=== PATIENT | female | born 2005 | race Caucasian/White ===

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

== ENCOUNTER 2024-03-20 19:28 | Emergency (ER) | payer BC ==
[2024-03-20 19:41] VITALS: BP 119/75; PULSE 100; RESP 18; TEMP 98.3; BMI 34.2
[2024-03-20] MEDS ORDERED: predniSONE 20 MG TABLET (UD) ONE (20:50)
[2024-03-20] MEDS ORDERED: AZITHROMYCIN 500 MG TABLET ONE (20:50)
[2024-03-20] MEDS: predniSONE 20 MG TABLET (UD) PO ONE (20:53)
[2024-03-20] MEDS: AZITHROMYCIN 500 MG TABLET PO ONE (20:53)
== END 2024-03-20 21:29 | disposition home or self-care (01) ==
LOC: FER 19:28
DX: J40 Bronchitis, not specified as acute or chronic (principal); R05.3 Chronic cough
CPT/HCPCS: 71046-TC-FY; 99283-25

== ENCOUNTER 2024-03-28 20:38 | Emergency (ER) | payer BC ==
[2024-03-28 20:43] VITALS: BP 122/86; PULSE 91; RESP 18; TEMP 98.4; BMI 34.6
[2024-03-28] MEDS ORDERED: AZITHROMYCIN IVPB 500 MG in DEXTROSE 5%-WATER - 250 ML IVPB ONE (20:57)
[2024-03-28] MEDS ORDERED: AZITHROMYCIN 500 MG TABLET ONE (21:08)
[2024-03-28] MEDS ORDERED: DEXAMETHASONE 4 MG TABLET (FP) ONE (21:09)
[2024-03-28] MEDS: AZITHROMYCIN 500 MG TABLET PO ONE (21:22)
[2024-03-28] MEDS: BENZOCAINE/MENTH/CETYLPYRD CL 1 EACH LOZENGE MM PRN (21:22)
[2024-03-28] MEDS: DEXAMETHASONE 4 MG TABLET (FP) PO ONE (21:22)
[2024-03-28] MEDS: ALBUTEROL SO4 2.5/IPRATROPIUM 0.5 INH SOL 3 ML VIAL.NEB. NEB ONE (22:24)
== END 2024-03-28 23:36 | disposition home or self-care (01) ==
LOC: FER 20:38
PROC: 3E0F7GC Introduction of Other Therapeutic Substance into Respiratory Tract, Via Natural or Artificial Opening (ICD-10-PCS; principal; 2024-03-28)
DX: J18.9 Pneumonia, unspecified organism (principal); R05.9 Cough, unspecified; R11.10 Vomiting, unspecified; Z20.822 Contact with and (suspected) exposure to COVID-19
CPT/HCPCS: 87635; 99283-25